=== PATIENT | male | born 1945 | race Caucasian/White ===

== ENCOUNTER 2023-08-20 23:59 | Inpatient (IN) | payer OTHER, SELFPAY ==
[2023-08-20] VITALS (8 sets, daily range): BP systolic 96–133; BP diastolic 58–81; BMI 28.7
[2023-08-20 19:39] LABS: % Basophils 0.6 % (0-2); % Eosinophils 5.2 % (0-6); % Immature Granulocytes 0.4 % (0-0.5); % Lymphocytes 16.1 % (20.5-51.1); % Monocytes 6.1 % (1.7-9.3); % Neutrophils 71.6 % (42.2-75.2); Absolute Basophils 0.1 10^3/uL (0-0.2); Absolute Eosinophils 0.5 10^3/uL (0-0.7); Absolute Lymphocytes 1.7 10^3/uL (1.2-3.4); Absolute Monocytes 0.6 10^3/uL (0.1-0.6); Absolute Neutrophils 7.4 10^3/uL (1.4-6.5); Hematocrit 32.8 % (39.0-52.0); Hemoglobin 10.9 g/dL (13.0-18.0); Mean Corp Hgb Conc. 33.2 g/dL (33.0-37.0); Mean Corpuscular Hgb 30.8 pg (27.0-31.0); Mean Corpuscular Volume 92.7 fL (80.0-94.0); Mean Platelet Volume 9.2 fL (7.4-10.4); Nucleated Red Blood Cells % 0 % (-); Platelet Count 276 10^3/uL (130-400); Red Blood Cell Count 3.54 10^6/uL (4.70-6.10); Red Cell Dist. Width 15.5 % (11.5-14.5); White Blood Cell Count 10.3 10^3/uL (4.8-10.8)
[2023-08-20 20:03] LABS: ALT (SGPT) 14 U/L (0-50); AST (SGOT) 21 U/L (17-59); Albumin 3.8 g/dl (3.5-5.0); Alkaline Phosphatase 64 U/L (38-126); Blood Urea Nitrogen 30 mg/dl (9-20); Calcium 8.8 mg/dl (8.4-10.2); Carbon Dioxide 28 mmol/L (22-30); Chloride 101 mmol/L (98-107); Glucose 134 mg/dl (70-99); Potassium 4.6 mmol/L (3.5-5.1); Sodium 138 mmol/L (135-145); Total Bilirubin 0.3 mg/dl (0.2-1.3); Total Protein 6.8 g/dl (6.3-8.2); eGFR > 60.00
[2023-08-20 20:13] LABS: Troponin I 0.123 ng/ml
[2023-08-20] MEDS: NSS 1000 IV (21:35)
--- NOTE | 2023-08-20 23:00 | ED.GENMED ---
History of Present Illness
General
Chief Complaint: Heart Rate Problem
Source: patient and spouse
Exam Limitations: none
Time Seen by Provider: 08/20/23 21:17
Nursing documentation reviewed up to this point in time: agreed with
Travel History
Have you had any contact with someone who has COVID-19?: No
Do you have any symptoms of coronavirus? Fever > 100 degrees, chills, cough, shortness of breath, sore throat, loss of taste or smell, muscle aches, or headache?: No
History of Present Illness
History of Present Illness:
77-year-old male with past ministry of hypertension diabetes presenting to the emergency department today with concerns of tachycardia that was found by the primary care doctor and close follow-up. Patient claims that he is syncopal episode at "[facility] yesterday morning was seen at [place] of having a CT angiogram of the that did not show any emergent findings as well as labs that were generally reassuring but a very minimally elevated troponin level. It was recommended to stay in the ""hospital but he was boarded in the ER. Concerning this he claimed that he would like to follow close with the primary care doctor which he went to follow-up with today that sent him back to the ER for further assessment.
Past History
Past History
ED Past Medical History: HTN, Hypercholesterolemia, IDDM and Other (Gout)
ED Past Surgical History: Other ([place] teeth)
Social History
Tobacco: Former smoker (Over 20 years ago)
Alcohol: None
Personal:
Living: with roommate
Employment: Retired
Family History
Family History: Other (Noncontributory)
Review of Systems
Review of Systems
Allergies reviewed?: Yes
All Other Systems: ROS reviewed and negative except as documented in HPI and ROS
Phy Exam
Physical Exam
Physical Exam:
GENERAL: Alert , in no apparent distress
EYE: pupils equal and reactive
NECK: Supple, no significant adenopathy.
ENT: o/p clr, mmm.
CARDIAC: Tachycardic
LUNGS: Clear breath sounds bilaterally, no acute respiratory distress, no wheezes/rales/rhonchi
ABDOMEN: Soft, without focal tenderness, no r/g, no cvat
NEUROLOGICAL: Alert and oriented, no focal neuro deficits
SKIN: Warm and dry, skin intact.
MUSCULOSKELETAL: No edema, well perfused.
PSYCH: Normal and appropriate interaction.
Course
Orders/Labs/Results
Orders:
Orders
08/20/23 19:25
Electrocardiogram (*1) Urgent
Reason for Study: Palpitations
08/20/23 19:26
EKG- Treatment ONCE
08/20/23 19:33
Complete Blood Count/With Diff Urgent
Comprehensive Metabolic Panel Urgent
Free T4 Urgent
TSH Reflex To Free T4 Urgent
Comment: ADD ON
Troponin I Urgent
08/20/23 21:34
0.9% Sodium Chloride 1000 ml [Nss] 1,000 ml IV BOLUS
08/20/23 22:05
Add On- LAB Urgent
Tests Added?: tsh free t4
Urinalysis Reflex To Culture Urgent
Date Specimen was Collected: 08/21/23
Time Specimen was Collected: 00:51
08/20/23 22:32
Metoprolol [Lopressor] 5 mg IV NOW STA
08/20/23 23:21
Diltiazem HCl [Cardizem] 20 mg IV NOW STA
08/20/23 23:49
EKG [Electrocardiogram (*1)] Urgent
Reason for Study: Tachycardia
EKG- Treatment ONCE
08/20/23 23:55
Troponin I Urgent
Abnormal Lab Results
08/20/23 08/20/23
19:33 23:55
RBC 3.54 L 10^6/uL
(4.70-6.10)
Hgb 10.9 L g/dL
(13.0-18.0)
Hct 32.8 L %
(39.0-52.0)
RDW 15.5 H %
(11.5-14.5)
Absolute Neuts (auto) 7.4 H 10^3/uL
(1.4-6.5)
Lymphocytes % 16.1 L %
(20.5-51.1)
BUN 30 H mg/dl
(9-20)
Glucose 134 H mg/dl
(70-99)
Troponin I 0.123 H* ng/ml 0.107 H* ng/ml
TSH (Reflex) 8.00 H uIU/ml
(0.47-4.68)
08/20/23 19:33
08/20/23 19:33
Vital Signs
Initial and Last Documented VS:
Initial Vital Signs
Temp Pulse Resp BP Pulse Ox
97.5 F 131 19 124/77 100
08/20/23 19:25 08/20/23 19:25 08/20/23 19:25 08/20/23 19:25 08/20/23 19:25
Last Documented Vital Signs
Temp Pulse Resp BP Pulse Ox
98.0 F 130 17 109/72 97
08/22/23 07:57 08/22/23 07:57 08/22/23 07:57 08/22/23 07:57 08/22/23 07:57
MDM/Problems Addressed
MDM/Problems Addressed:
77-year-old male presenting to the emergency department today with concerns of tachycardia seen by his primary care doctor. He was following up closely after had a syncopal episode the day prior was supposed to be admitted to [facility] but
ended up leaving for close follow-up. On arrival here heart rate in the 120s patient denies significant symptoms at this time otherwise labs were obtained showing hemoglobin 10.9 which is patient's baseline elevated BUN potentially consistent with
some degree of dehydration was given fluids troponin elevated 0.123 no old levels. EKG showing a tachycardic rate. Patient additionally given dose of Lopressor to try to slow the rate to repeat EKG to see underlying rhythm. 5 Lopressor was
unsuccessful with this. Patient did maintain his blood pressure. Patient then had dose of diltiazem. Patient's rate slowed and it appeared the patient was in atrial flutter this does explains patient's ongoing tachycardia patient started on
anticoagulant and admitted for further monitoring and evaluation.
*Critical Care Note
Total Time (30-74mins, 75-104mins- exclusive of procedures): Not Applicable
ED Attending Note
-
Portions of this chart may have been created with voice recognition software.� Occasional wrong word or��sound alike� substitutions may have occurred due to the inherent limitations of voice recognition software.
Discharge Plan
Departure
Patient Disposition: Admit
Date of Disposition: 08/20/23
Time of Disposition: 23:40
Admit to: Telemetry
Admit to doctor: Anastacio
Presentation/result/management discussed w/ accepting MD/DO: Hospitalist
Patient with high blood pressure during this ER visit?: No
Condition: Good
Covid-19: Not Applicable
Discharge Problem:
Tachycardia, Elevated troponin
Interventions
Interventions:
*Risk Screen - Suicide Last Done: 08/20/23 23:12
*General Assessment Last Done: 08/20/23 23:10
*Neglect/Abuse Screening Last Done: 08/20/23 23:10
ED- Fall Risk Assessment Last Done: 08/21/23 09:37
*ED COVID-19 Vaccine History Last Done: 08/20/23 19:27
*Nursing Disposition Last Done: 08/21/23 17:15
ED- Cardiac Assessment Last Done: 08/21/23 09:37
ED- Pulmonary Assessment Last Done: 08/21/23 09:37
Discharge Date and Time
Discharge Date/Time: 08/21/23 17:21
[2023-08-20] MEDS: LOPRESSOR 5 MG IV (23:08)
[2023-08-20] MEDS: CARDIZEM 20 MG IV (23:44)
[2023-08-21] VITALS (18 sets, daily range): BP systolic 94–138; BP diastolic 54–85; PULSE 126–127; BMI 28.2
[2023-08-21 00:03] LABS: Free T4 1.11 ng/dl (0.78-2.19)
--- NOTE | 2023-08-21 00:04 | HPS.HSE ---
Family Physician
-
Family Physician: Riley Patrick
Chief Complaint
-
syncope
History of Present Illness
77-year-old male past medical history of hypertension, diabetes, hypercholesterolemia, gout, presenting with tachycardia discovered by primary care physician. Patient states that he had a syncopal episode at [employer] yesterday morning. 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 He came back to
normal status afterwards. He did complain of some fullness in his head and some haziness afterwards. Patient denies any chest pain or palpitations or shortness of breath. He did have some nausea today and fatigue today.
He has been having chronic lower extremity over the past several months.
He was seen at [place] and had a CTA chest which did not show any abnormal findings. Patient had very minimal elevated troponin level. He was recommend to follow-up with primary care physician who noted that he was tachycardic and sent him to
emergency room.
He states that his glucometer was not working for the past 2 months he has not been checking his blood sugars. They were normal as of 2 months ago.
Patient does not smoke or drink alcohol.
Medical History
Past Medical History
Past Medical History: Reports Other (hypertension, diabetes, hypercholesterolemia, gout,)
Past Surgical History: Reports None
Social History
Tobacco: Non-smoker
Alcohol: None
Drug: None
Family History
Family History: Not pertinent
Allergies / Home Medications
Allergies reflects when Allergies were last updated in [employer].
Home Medications with original date entered in [employer]
Allergy/Medication List:
Allergies
Allergy/AdvReac Type Severity Reaction Status Date / Time
pamabrom Allergy Unknown Verified 04/18/23 17:06
Penicillins Allergy Unknown Verified 04/18/23 17:06
Home Medications
acarbose 25 mg tablet 25 mg PO BID 05/29/21
cyanocobalamin (vitamin B-12) 1,000 mcg tablet 1,000 mg PO DAILY 05/29/21
glimepiride 2 mg tablet 2 mg PO DAILY 05/29/21
lisinopril 20 mg tablet 20 mg PO BID 05/29/21
metformin 500 mg tablet,extended release 24 hr 500 mg PO QPM 05/29/21
metoprolol tartrate 50 mg tablet 50 mg PO BID 05/29/21
simvastatin 20 mg tablet 20 mg PO HS 05/29/21
allopurinol 100 mg tablet 100 mg PO BID 04/18/23
aspirin 81 mg tablet,delayed release 81 mg PO DAILY 04/18/23
furosemide 40 mg tablet 40 mg PO DAILY 04/18/23
Review of Systems
-
History Source: Patient
A 12 point ROS was completed and negative except as noted: Yes
Constitutional: Reports No Symptoms
EENT: Reports No Symptoms
Respiratory: Reports No Symptoms
Cardiac: Reports See HPI
Abdomen/GI: Reports No Symptoms
: Reports No Symptoms
Musculoskeletal: Reports No Symptoms
Skin: Reports No Symptoms
Neurological: Reports No Symptoms
Endocrine: Reports No Symptoms
Hematologic/Lymphatic: Reports No Symptoms
Psych: Reports No Symptoms
Physical Exam
Vital Signs
Vital Signs
Temp Pulse Resp BP Pulse Ox
97.5 F 64 16 108/66 98
08/20/23 19:25 08/20/23 23:56 08/20/23 23:56 08/20/23 23:56 08/20/23 23:56
Physical Exam
General: Well Developed, Well Nourished and No Apparent Distress
HEENT: NormoCephalic, Moist mucous membranes and Atraumatic
Respiratory: Clear
Cardiac: S1/S2, Regular Rhythm and Tachycardia; No Murmur or Rub
GI: Soft, Non Tender, Non Distended and Normal Bowel Sounds; No Organomegaly
Rectal: Deferred by Provider
Musculoskeletal: No Clubbing, No Cyanosis and No Edema
Skin: No Rash
Neuro: Nonfocal/grossly intact
Laboratory Results
-
08/20/23 19:33
08/20/23:33
Laboratory Results
Total Bilirubin 0.3 mg/dl (0.2-1.3) 08/20/23:33
AST 21 U/L (17-59) 08/20/23:33
ALT 14 U/L (0-50) 08/20/23:33
Alkaline Phosphatase 64 U/L (38-126) 08/20/23:33
Troponin I 0.123 ng/ml H* 08/20/23:33
Data Reviewed
-
Lab Data: Labs Reviewed by me
Old Records: Reviewed
Impression/Plan
-
IMPRESSION:
PLAN:
# Syncopal episode secondary to atrial flutter
# New onset atrial flutter with RVR
# Troponin elevation likely due to tachycardia
-Initial EKG shows sinus tachycardia, right bundle branch block, left posterior fascicular block without prior EKG
-IV fluids given
-Patient given PO Cardizem with slowing of heart rate to 60 showing atrial flutter
-Troponin of 0.123, continue to trend
-TSH of 8, check free T4
-Continue aspirin
-Continue metoprolol
-Check echo
-Heparin drip
-Cardiology consulted
Recent lower extremity edema
-Hold Lasix
Essential hypertension
-Continue lisinopril
Type 2 diabetes
-Hold oral diabetic medications
-Insulin sliding scale
Hypercholesterolemia
-Continue statin
Gout
-Continue allopurinol
Chronic anemia
-Hemoglobin stable
Full code
DVT prophylaxis�heparin drip
Regular diet
[2023-08-21 00:29] LABS: Troponin I 0.107 ng/ml
[2023-08-21 00:48] LABS: Hemoglobin 9.9 g/dL (13.0-18.0); Mean Corpuscular Hgb 30.7 pg (27.0-31.0); Mean Corpuscular Volume 92.9 fL (80.0-94.0); Mean Platelet Volume 9.1 fL (7.4-10.4); Platelet Count 242 10^3/uL (130-400); Red Blood Cell Count 3.23 10^6/uL (4.70-6.10); Red Cell Dist. Width 15.5 % (11.5-14.5); White Blood Cell Count 9.2 10^3/uL (4.8-10.8)
[2023-08-21 01:03] LABS: APTT 30.4 Sec (23.4-35.0)
[2023-08-21] MEDS: HEPARIN 25000 UNITS/250 ML IV ×2 (01:10→23:03)
[2023-08-21] MEDS: CARDIZEM 5 MG IV (01:47)
[2023-08-21 01:52] LABS: Urine Albumin Negative (Neg - Trace); Urine Bilirubin Negative (Negative); Urine Character Clear (Clear); Urine Color Yellow; Urine Glucose Negative (Negative); Urine Ketone Negative (Negative); Urine Leukocyte Negative (Negative); Urine Nitrite Negative (Negative); Urine Occult Blood Negative (Negative); Urine Urobilinogen Negative (Neg - 1+); Urine pH 6.5 (5.0-9.0)
--- NOTE | 2023-08-21 05:42 | W.PN.UPDATE ---
Update Note
Progress Note Update
Patient is tachy/a flutter with hr in 120s to 130s, denied chest pain or SOB. was managed by one time order of Cardizem 5mg IV, couple hours later hr back to 130s. Will start Cardizem drip at low rate of 5mg/hr.
[2023-08-21] MEDS: CARDIZEM 125 IV (05:56)
[2023-08-21 06:25] LABS: % Basophils 0.6 % (0-2); % Eosinophils 6.4 % (0-6); % Immature Granulocytes 1.7 % (0-0.5); % Lymphocytes 15.3 % (20.5-51.1); % Monocytes 6.8 % (1.7-9.3); % Neutrophils 69.2 % (42.2-75.2); Absolute Basophils 0.1 10^3/uL (0-0.2); Absolute Eosinophils 0.5 10^3/uL (0-0.7); Absolute Immature Granulocytes 0.1 10^3/uL (0-0.05); Absolute Lymphocytes 1.2 10^3/uL (1.2-3.4); Absolute Monocytes 0.5 10^3/uL (0.1-0.6); Absolute Neutrophils 5.4 10^3/uL (1.4-6.5); Hematocrit 31.9 % (39.0-52.0); Hemoglobin 10.1 g/dL (13.0-18.0); Mean Corp Hgb Conc. 31.7 g/dL (33.0-37.0); Mean Corpuscular Hgb 30.5 pg (27.0-31.0); Mean Corpuscular Volume 96.4 fL (80.0-94.0); Mean Platelet Volume 9.6 fL (7.4-10.4); Nucleated Red Blood Cells % 0 % (-); Platelet Count 252 10^3/uL (130-400); Red Blood Cell Count 3.31 10^6/uL (4.70-6.10); Red Cell Dist. Width 15.4 % (11.5-14.5); White Blood Cell Count 7.8 10^3/uL (4.8-10.8)
[2023-08-21 06:38] LABS: ALT (SGPT) 13 U/L (0-50); AST (SGOT) 19 U/L (17-59); Albumin 3.2 g/dl (3.5-5.0); Alkaline Phosphatase 62 U/L (38-126); Blood Urea Nitrogen 24 mg/dl (9-20); Calcium 8.2 mg/dl (8.4-10.2); Carbon Dioxide 26 mmol/L (22-30); Chloride 109 mmol/L (98-107); Estimated Creatinine Clearance 73 ml/min; Glucose 132 mg/dl (70-99); Potassium 4.4 mmol/L (3.5-5.1); Sodium 137 mmol/L (135-145); Total Bilirubin 0.3 mg/dl (0.2-1.3); Total Protein 6.1 g/dl (6.3-8.2); eGFR > 60.00
[2023-08-21 06:53] LABS: Troponin I 0.072 ng/ml
[2023-08-21] MEDS: VITAMIN B-12 1000 MCG PO (08:44)
[2023-08-21] MEDS: ZYLOPRIM 100 MG PO ×2 (08:45→20:05)
[2023-08-21] MEDS: LOPRESSOR 50 MG PO ×2 (08:45→20:05)
[2023-08-21 08:57] LABS: APTT 37.6 Sec (23.4-35.0)
[2023-08-21 09:29] LABS: Glucose - Point of Care 144 mg/dl (70-99)
[2023-08-21 09:31] LABS: Glycohemoglobin (HgbA1c) 7.5 % (4.0-5.6)
[2023-08-21] MEDS: NOVOLOG FLEXPEN-LOW RESISTANCE SC ×2 (09:40→13:04)
[2023-08-21] MEDS: ZESTRIL PO ×2 (09:48→09:52)
--- NOTE | 2023-08-21 11:19 | CON.CAR ---
Addendum entered and electronically signed by Erich Roman MD 08/21/23 14:23:
Attending addendum: Patient seen and examined. PA note reviewed and findings independently confirmed by me. Briefly, this is a 77-year-old gentleman with a longstanding history of diabetes mellitus x 30 years. He is active in the [employer] and reported an episode of profound dizziness and transient loss of consciousness while at [employer] on Sunday. He slumped forward but his states he was found to be immediately alert when he hit the ground. He had been somewhat diaphoretic
before falling. He was seen by several attendees of the service and given a little snack and some orange juice. He was then transferred to [facility] and had a CT scan of the chest that was negative for pulmonary embolism. He was told to
follow-up with his primary care physician and was seen by Dr. Patrikc and had a heart rate of 130 bpm and referred to the emergency room for further evaluation. Upon arrival here he was found to be in atrial flutter/atrial fib. He was started on IV
Cardizem and IV heparin with improvement in the ventricular response. He has experienced no chest discomfort but his initial troponin measured 0.123 ng/ml. Patient states that he is not too active at home but moved 16 bags of mulch last week with
no difficulty. He denies any chest discomfort or shortness of breath. He is reasonably asymptomatic with his atrial flutter.
Physical exam
GEN: AAO x 3. No acute distress
HEENT: NC/AT, sclera are anicteric, hearing and nares are normal.
NECK: Supple. Normal JVP
LUNGS: Clear to bases bilaterally. No wheezing
CV: Irregularly irregular and tachycardic. Normal S1/S2. No S3, No S4. Murmur: None
ABD : Soft, NT, ND, No HSM. Bowel sounds are present.
EXT: No CCE
NEURO: No focal neurologic deficits
ECG: Atrial flutter with rapid ventricular response
IMPRESSION:
-Atrial flutter/atrial fib
-Longstanding diabetes
-Non-NE troponin elevation
-Hypertension
-Hyperlipidemia
RECOMMENDATION:
-Will check echocardiogram
-N.p.o. after midnight for planned JAROD cardioversion
-Will ask case management to review cost of oral anticoagulants
-Will need eventual ischemic evaluation with stress testing or coronary angiography based on low-level positive troponin. Results of echocardiogram may influence ischemic evaluation pathway
-I would intensify lipid-lowering given his longstanding diabetes. Check fasting lipid profile
Original Note:
Consultation
Consultation Request
Date/Time Consultation Requested: 08/21/23 at 0046
Date/Time Consultation Performed: 08/21/23 at 0930
Requesting Provider: Dr. Chavez
Performing Provider: Dr. Roman
Reason for Consultation: Elevated Troponin, newly diagnosed atrial flutter of unknown duration
Medical History
-
History of Present Illness:
Patient came to [facility] yesterday with new atrial flutter and cardiology is consulted. 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 He is also a DM and has not had a working glucometer for 2 months so after
the morning practice session, but before the [employer] service he was lightheaded and ate some crackers and cookies and felt better. 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
unconsciousness. Patient [place] and then 911 came. Patient was taken to [facility]. He has the [facility] records and his recorded HR is 101, but no ECG. He had a CT chest that was negative for PE. CT head negative. His
Troponin T at [facility] was 18. He says he was told he should follow up with his PCP and so he saw Dr. Patrick in the office yesterday and HR was 130 and ECG was concerning for 'tachycardia' so patient was told to drive himself to [facility]. Upon arrival to [facility]
patient was given Lopressor and then Cardizem and once HR slowed flutter waves were seen. Patient was admitted overnight and started on Cardizem gtt and Heparin gtt. No chest pain, but Troponin was elevated again with initial level 0.123 and trended
down thereafter. Patient was able to move 16 bags of mulch within the last week without chest pain.
PMH:
h/o syncope 08/19/23
DM 2
HTN
Hyperlipidemia
Past Medical History
Past Medical History: Other (in HPI)
Past Surgical History: Other ([place] teeth)
Social History
Tobacco: Former Smoker
Alcohol: None
Drug: None
Personal: Single
Living: Alone
Family History
Family History: Reviewed & Not Pertinent (no children)
Allergies / Home Medications
Allergy/AdvReac Type Severity Reaction Status Date / Time
pamabrom Allergy Unknown Verified 04/18/23 17:06
Penicillins Allergy Unknown Verified 04/18/23 17:06
�Medication �Instructions �Recorded �Confirmed �Type
acarbose 25 mg tablet 25 mg PO BID Diabetes 05/29/21 08/21/23 History
cyanocobalamin (vitamin B-12) 1,000 mg PO DAILY Supplement 05/29/21 08/21/23 History
1,000 mcg tablet
glimepiride 2 mg tablet 2 mg PO DAILY Diabetes 05/29/21 08/21/23 History
lisinopril 20 mg tablet 20 mg PO BID Blood Pressure 05/29/21 08/21/23 History
metformin 500 mg tablet,extended 500 mg PO QPM Diabetes 05/29/21 08/21/23 History
release 24 hr
metoprolol tartrate 50 mg tablet 50 mg PO BID 05/29/21 08/20/23 History
simvastatin 20 mg tablet 20 mg PO HS 05/29/21 08/20/23 History
allopurinol 100 mg tablet 100 mg PO BID Gout 04/18/23 08/21/23 History
aspirin 81 mg tablet,delayed 81 mg PO DAILY Blood Clot 04/18/23 08/21/23 History
release Prevention/Tx
furosemide 40 mg tablet 40 mg PO DAILY Fluid 04/18/23 08/21/23 History
Retention/Swelling
Review of Systems
-
History Source: Patient and Family (partner sitting bedside helping with HPI)
All other systems: Negative unless noted
Physical Exam
Vital Signs
Temp Pulse Resp BP Pulse Ox
97.5 F 88 23 107/54 98
08/20/23 19:25 08/21/23 10:30 08/21/23 10:30 08/21/23 10:00 08/21/23 08:00
GEN: NAD, AAOx3
HEENT: EOMI, MMM
LUNGS: CTA B/L without wheeze
CV: Irreg, S1/S2, no murmur
ABD: soft, BS+, NT, ND
EXT: No clubbing, cyanosis, lesions or edema B/L
NEURO: Gross non-focal
SKIN: No rash
Lab Results
08/21/23 05:56
08/21/23 05:56
Troponin I Cancelled 08/21/23 18:00
Impression / Plan
-
PCP: Dr. Riley Patrick
Cardiology: Dr. Spencer, last seen 06/30/20
Impression:
Newly diagnosed typical atrial flutter with RVR 08/20/23
h/o syncope 08/19/23
Elevated Troponin
DM 2
HTN
Hyperlipidemia
Lexiscan mibi 06/15/20: Small area fixed defect apex, EF 58%
Plan:
-Patient came to [facility] yesterday with new atrial flutter and cardiology is consulted. 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 He is also a DM and has not had a working glucometer for 2 months so after
the morning practice session, but before the [employer] service he was lightheaded and ate some crackers and cookies and felt better. 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
unconsciousness. Patient was cared for by EMS and a nurse in the [place] and then 911 came. Patient was taken to [facility] ER. He has the [facility] records and his recorded HR is 101, but no ECG. He had a CT chest that was negative for PE. CT head negative. His
Troponin T at [facility] was 18. He says he was told he should follow up with his PCP and so he saw Dr. Patrick in the office yesterday and HR was 130 and ECG was concerning for 'tachycardia' so patient was told to drive himself to [facility]. Upon arrival to [facility]
patient was given Lopressor and then Cardizem and once HR slowed flutter waves were seen. Patient was admitted overnight and started on Cardizem gtt and Heparin gtt. No chest pain, but Troponin was elevated again with initial level 0.123 and trended
down thereafter. Patient was able to move 16 bags of mulch within the last week without chest pain.
-Patient with new atrial flutter on ECG last night. No ECGs available from [facility]. No palpitations, but patient has felt fatigued and had syncope on Sunday. HRs 132 initially, but on Cardizem gtt at 5 mg/hr HRs 80-90s. Presented patient with options of
JAROD/CV vs rate control. Reviewed risks vs benefits of each including JAROD procedure in detail and risks of incipient CM and HF with uncontrolled atrial arrhythmia. Patient is leaning towards rate control.
-Reviewed risks of stroke and DOEC vs warfarin. Patient stable on Heparin gtt. Will ask CM to check cost of Eliquis. Would stop aspirin if starting on OAC.
-Troponin T at [facility] was 18 and Troponin I at was 0.123 and trended down thereafter. ECG reviewed by me shows atrial flutter. No complaints of chest pain. No recent chest pain or MONZON prior to admission. No ischemic by stress test in 2020. Will
recommend an outpatient stress test.
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 Recommend treatment of issues as outlined.
-Patient needs to start following blood sugars again.
--- NOTE | 2023-08-21 11:30 | W.PN.HOSP.TC ---
Addendum entered and electronically signed by Natali Chavez MD 08/21/23 11:49:
non-billable note (H&P signed same calendar date)
Original Note:
Today's Communication/Plan
-
see outlined plan
Assessment / Plan
Assessment / Plan
Assessment:
Syncopal episode secondary to atrial flutter
New onset atrial flutter with RVR
non-MN Troponin elevation likely due to tachycardia/Flutter
- trop peaked at .107
- TSH abnormal at 8; free T4 normal
- initially trialed on PO Cardizem, but went into further RVR
- started on IV Cardizem drip - requires intensive monitoring
- continue PO Metoprolol
- on IV Heparin - requires intensive monitoring. [id number] score is 4 (age, DM, HTN). [facility] out oral OAC options.
- TTE: pending read
- rate control vs JAROD/CV being decided by patient/family
- [facility] Cards consulted
Recent lower extremity edema
- Hold Lasix
Essential hypertension
- continue lisinopril
Type 2 diabetes
- Hold oral diabetic medications
- Insulin sliding scale
- A1c 7.5%
Hypercholesterolemia
- continue statin
Gout
- continue allopurinol
Chronic anemia
- Hemoglobin stable
- continue B12
DVT ppx: IV Heparin drip
Code: Full
Anticipated Discharge: > 48 hours
Subjective/Interval History
-
Date of Service: August 21, 2023
denies any new complaints at present
remains on IV Heparin and IV Cardizem drips
Objective Data
-
Labs:
Laboratory Results
08/21/23 08/21/23 08/21/23
00:40 05:56 08:25
WBC 9.2 7.8
Hgb 9.9 L 10.1 L
Hct 30.0 L 31.9 L
Plt Count 242 252
APTT 30.4 37.6 H
Sodium 137
Potassium 4.4
Chloride 109 H
Carbon Dioxide 26
BUN 24 H
Creatinine 1.0
Glucose 132 H
Calcium 8.2 L
Total Bilirubin 0.3
AST 19
ALT 13
Alkaline Phosphatase 62
Vital Signs:
Vital Signs
Temp Pulse Resp BP Pulse Ox
97.5 F 88 23 107/54 98
08/20/23 19:25 08/21/23 10:30 08/21/23 10:30 08/21/23 10:00 08/21/23 08:00
Physical Exam
-
General: No Apparent Distress
HEENT: Normocephalic and Atraumatic
Cardiac: Irregular Rhythm
GI: Soft and Nontender
Neuro: AO x 3
Hematologic / Lymphatic: No Lymphadenopathy
Psych: Calm
Data Reviewed
-
Total Time Spent with Patient (in minutes): 51
Labs: Labs Reviewed by me
--- NOTE | 2023-08-21 12:22 | CM ---
CM was consulted for yeager check on Beddit. CM spoke with patient's [facility] and confirmed $47 copay. Patient was updated and given filler wiper coupons. Patient is agreeable to cost.
CM confirmed demographics. Patient lives independently with . Patient does not have a history of VN, SNF or DME. Patient is active with his PCP. Plan for discharge to home with no needs.
RD updated cardiology PA.
PLAN: Home no needs,
[2023-08-21 13:04] LABS: Glucose - Point of Care 149 mg/dl (70-99)
[2023-08-21 13:58] LABS: APTT 39.2 Sec (23.4-35.0)
[2023-08-21 17:24] LABS: Glucose - Point of Care 201 mg/dl (70-99)
[2023-08-21 19:24] LABS: Glucose - Point of Care 155 mg/dl (70-99)
[2023-08-21] MEDS: NOVOLOG FLEXPEN-LOW RESISTANCE 1 UNITS SC (19:28)
[2023-08-21] MEDS: ZESTRIL 20 MG PO (20:04)
[2023-08-21 20:44] LABS: APTT 43.9 Sec (23.4-35.0)
[2023-08-21] MEDS: LIPITOR 40 MG PO (21:18)
[2023-08-21 22:15] LABS: Glucose - Point of Care 214 mg/dl (70-99)
[2023-08-22] VITALS (13 sets, daily range): BP systolic 105–121; BP diastolic 54–75; BMI 28.2
[2023-08-22] MEDS: CARDIZEM 125 IV (03:15)
[2023-08-22 04:38] LABS: APTT 56.8 Sec (23.4-35.0)
[2023-08-22 04:40] LABS: Hematocrit 29.6 % (39.0-52.0); Hemoglobin 9.7 g/dL (13.0-18.0); Mean Corp Hgb Conc. 32.8 g/dL (33.0-37.0); Mean Corpuscular Hgb 31.2 pg (27.0-31.0); Mean Corpuscular Volume 95.2 fL (80.0-94.0); Mean Platelet Volume 9.6 fL (7.4-10.4); Platelet Count 278 10^3/uL (130-400); Red Blood Cell Count 3.11 10^6/uL (4.70-6.10); Red Cell Dist. Width 15.6 % (11.5-14.5); White Blood Cell Count 8.6 10^3/uL (4.8-10.8)
--- NOTE | 2023-08-22 04:53 | DOWNTIME ---
There was a [employer] Downtime on 08/22/2023 from 0100 to 08/22/2023 at 0439. Downtime documentation of patient's care, including medication administrations, has been reconciled in the electronic record per guidelines. Refer to the
patient's paper chart under the miscellaneous tab to see printed paper medication records and downtime forms.
--- NOTE | 2023-08-22 05:12 | PTCARENOTE ---
A 2355, pts HR 67 and showing NSR on monitor. DAVID Quinonez notified. EKG showing ATRIAL FLUTTER WITH 4:1 A-V CONDUCTION
RIGHT BUNDLE BRANCH BLOCK. Cardizem gtt continuing at 5mg/hr.
at 0400, pt's HR in 100s to 120s, Afib on monitor. BP 121/75. Pt asymptomatic. DAVID Quinonez notified. This nurse took a verbal order over the phone from DAVID Quinonez to increase pt's IV Cardizem to 10mg/hr. Plan of care ongoing.
[2023-08-22 05:15] LABS: Blood Urea Nitrogen 20 mg/dl (9-20); Calcium 8.3 mg/dl (8.4-10.2); Carbon Dioxide 26 mmol/L (22-30); Chloride 110 mmol/L (98-107); Estimated Creatinine Clearance 66 ml/min; Glucose 145 mg/dl (70-99); Potassium 4.3 mmol/L (3.5-5.1); Sodium 136 mmol/L (135-145); Total Cholesterol 95 mg/dl (50-199); Triglyceride 145 mg/dl (10-149); Very Low Density Lipoprotein 29 mg/dl (0-30); eGFR > 60.00
[2023-08-22 05:16] LABS: HDL Cholesterol 30 mg/dl; LDL Cholesterol, Calculated 36 mg/dl
[2023-08-22 05:44] LABS: Glucose - Point of Care 164 mg/dl (70-99)
[2023-08-22] MEDS: NOVOLOG FLEXPEN-LOW RESISTANCE 1 UNITS SC ×3 (06:13→17:13)
[2023-08-22] MEDS: VITAMIN B-12 1000 MCG PO (08:03)
[2023-08-22] MEDS: ZESTRIL 20 MG PO ×2 (08:03→20:51)
[2023-08-22] MEDS: LOPRESSOR 50 MG PO (08:04)
[2023-08-22] MEDS: ZYLOPRIM 100 MG PO ×2 (08:04→20:48)
[2023-08-22 10:43] LABS: APTT 79.4 Sec (23.4-35.0)
--- NOTE | 2023-08-22 10:43 | W.PN.CARDCBS ---
Today's Communication / Plan
-
Remains in atrial flutter
JAROD/cv today
Transition from IV Heparin to Eliquis
Outpt follow up to consider outpt ischemic eval.
Outpt follow up with Dr Spencer.
Reviewed with family at bedside.
Impression / Plan
-
.
PCP: Dr. Riley Patrick
Cardiology: Dr. Spencer, last seen 06/30/20
Impression:
Newly diagnosed typical atrial flutter with RVR 08/20/23
h/o syncope 08/19/23
Elevated Troponin
DM 2
HTN
Hyperlipidemia
Lexiscan mibi 06/15/20: Small area fixed defect apex, EF 58%
Echo August 21 2023: EF 70-75%. Mild concentric LVH. Mild mitral regurgitation
No prior studies for comparison
Plan:
Remains in atrial flutter
JAROD/cv today
Transition from IV Heparin to Eliquis
Outpt follow up to consider outpt ischemic eval.
Outpt follow up with Dr Spencer.
Reviewed with family at bedside.
HPI: Patient came to [facility] yesterday with new atrial flutter and cardiology is consulted. 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 He is also a DM and has not had a working glucometer for 2 months so
after the morning practice session, but before the [employer] service he was lightheaded and ate some crackers and cookies and felt better. 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
with unconsciousness. Patient [place] cared [place] EMS [place] and then 911 came. Patient was taken to [facility] ER. He has the [facility] records and his recorded HR is 101, but no ECG. He had a CT chest that was negative for PE. CT head negative.
His Troponin T at [facility] was 18. He says he was told he should follow up with his PCP and so he saw Dr. Patrick in the office yesterday and HR was 130 and ECG was concerning for 'tachycardia' so patient was told to drive himself to [facility]. Upon arrival to
[facility] patient was given Lopressor and then Cardizem and once HR slowed flutter waves were seen. Patient was admitted overnight and started on Cardizem gtt and Heparin gtt. No chest pain, but Troponin was elevated again with initial level 0.123 and
trended down thereafter. Patient was able to move 16 bags of mulch within the last week without chest pain.
Attending addendum: Patient seen and examined. PA note reviewed and findings independently confirmed by me. Briefly, this is a 77-year-old gentleman with a longstanding history of diabetes mellitus x 30 years. He is active in the [employer]
cho[employer] and reported an episode of profound dizziness and transient loss of consciousness while at [employer] on Sunday. He slumped forward but his states he was found to be immediately alert when he hit the ground. He had been somewhat diaphoretic
before falling. He was seen by several attendees of the service and given a little snack and some orange juice. He was then transferred to [facility] and had a CT scan of the chest that was negative for pulmonary embolism. He was told to
follow-up with his primary care physician and was seen by Dr. Patrick and had a heart rate of 130 bpm and referred to the emergency room for further evaluation. Upon arrival here he was found to be in atrial flutter/atrial fib. He was started on IV
Cardizem and IV heparin with improvement in the ventricular response. He has experienced no chest discomfort but his initial troponin measured 0.123 ng/ml. Patient states that he is not too active at home but moved 16 bags of mulch last week with
no difficulty. He denies any chest discomfort or shortness of breath. He is reasonably asymptomatic with his atrial flutter.
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
Subjective
Date of Service: August 22, 2023
Pt seen and examined. No cp or dyspnea
Objective
Labs:
08/22/23 03:00
08/22/23 03:00
Labs
Hgb 9.7 g/dL (13.0-18.0) L 08/22/23 03:00
Hct 29.6 % (39.0-52.0) L 08/22/23 03:00
Plt Count 278 10^3/uL (130-400) 08/22/23 03:00
APTT 56.8 Sec (23.4-35.0) H 08/22/23 03:00
Sodium 136 mmol/L (135-145) 08/22/23 03:00
Potassium 4.3 mmol/L (3.5-5.1) 08/22/23 03:00
BUN 20 mg/dl (9-20) 08/22/23 03:00
Creatinine 1.1 mg/dL (0.7-1.3) 08/22/23 03:00
Glucose 145 mg/dl (70-99) H 08/22/23 03:00
Troponins
08/20/23 08/20/23 08/21/23
19:33 23:55 00:46
Troponin I 0.123 H* 0.107 H* Cancelled
08/21/23 08/21/23 08/21/23
05:56 06:46 12:00
Troponin I 0.072 H* D Cancelled Cancelled
08/21/23 08/21/23
12:46 18:00
Troponin I Cancelled Cancelled
Vital Signs and I&O:
Vital Signs
Temp Pulse Resp BP Pulse Ox
98.0 F 130 17 109/72 97
08/22/23 07:57 08/22/23 07:57 08/22/23 07:57 08/22/23 07:57 08/22/23 08:00
Vital Signs
Temp Pulse Resp BP Pulse Ox
98.0 F 130 17 109/72 97
08/22/23 07:57 08/22/23 07:57 08/22/23 07:57 08/22/23 07:57 08/22/23 08:00
Intake & Output
08/20/23 08/21/23 08/22/23 08/23/23
06:59 06:59 06:59 06:59
Intake Total 120 / 120
Balance 120 / 120
Physical Exam
Physical Exam
General: No acute distress, AAOX3
Neck: Negative JVD
Heart: Tachycardia, Negative S3 positive S1/S2, Negative S4, No murmur
Lungs: CTA b/l, negative wheezes/rales/rhonchi
Abd: Positive BS, NT/ND, neg rebound/rigidity/guarding
Ext: Negative cyanosis/clubbing/edema
Neuro: nonfocal
--- NOTE | 2023-08-22 11:24 | W.PN.HOSP.TC ---
Today's Communication/Plan
-
await JAROD/CV and cards recs
Assessment / Plan
Assessment / Plan
Assessment:
Syncopal episode secondary to atrial flutter
New onset atrial flutter with RVR
non-[place] Troponin elevation likely due to tachycardia/Flutter
- trop peaked at .107 - eventual ischemic evaluation stress vs cath per Cardiology
- TSH abnormal at 8; free T4 normal
- initially trialed on PO Cardizem, but went into further RVR
- started on IV Cardizem drip - requires intensive monitoring
- continue PO Metoprolol
- transition to Eliquis 5mg BID, cost is $47 per CM.
- TTE: normal LV size/function, normal EF. mild MR, trace TR otherwise normal
- for JAROD/CV today
- DCA Cards following
Recent lower extremity edema
- Hold Lasix
Essential hypertension
- continue lisinopril
Type 2 diabetes
- Hold oral diabetic medications
- Insulin sliding scale
- A1c 7.5%
Hypercholesterolemia
- continue high intensity statin
- LDL: 36
Gout
- continue allopurinol
Chronic anemia
- Hemoglobin stable
- continue B12
DVT ppx: Eliquis
Code: Full
Anticipated Discharge: Within 24 hours
Subjective/Interval History
-
Date of Service: August 22, 2023
remains in rapid Aflutter on cardizem drip
for JAROD/CV today
denies any new complaints
Objective Data
-
Labs:
Laboratory Results
08/22/23 08/22/23 08/22/23
03:00 10:25 17:00
WBC 8.6
Hgb 9.7 L
Hct 29.6 L
Plt Count 278
APTT 56.8 H 79.4 H Pending
Sodium 136
Potassium 4.3
Chloride 110 H
Carbon Dioxide 26
BUN 20
Creatinine 1.1
Glucose 145 H
Calcium 8.3 L
Vital Signs:
Vital Signs
Temp Pulse Resp BP Pulse Ox
98.0 F 126 18 105/72 98
08/22/23 11:20 08/22/23 11:20 08/22/23 11:20 08/22/23 11:20 08/22/23 11:20
I&O
08/21/23 08/22/23 08/23/23
06:59 06:59 06:59
Intake Total 120 / 120
Balance 120 / 120
Physical Exam
-
General: No Apparent Distress
HEENT: Normocephalic and Atraumatic
Respiratory: Clear to Auscultation; Negative Wheezes or Rales
Cardiac: Irregular Rhythm and Tachycardic
GI: Soft and Nontender
Genito-urinary: No Costovertebral Tender
Neuro: AO x 3
Hematologic / Lymphatic: No Lymphadenopathy
Psych: Calm
Data Reviewed
-
Total Time Spent with Patient (in minutes): 45
Labs: Labs Reviewed by me
[2023-08-22] MEDS: ELIQUIS 5 MG PO ×2 (11:27→20:48)
[2023-08-22 11:47] LABS: Glucose - Point of Care 179 mg/dl (70-99)
--- NOTE | 2023-08-22 14:02 | ITS.CL.CARDI ---
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
Cardioversion
Procedure Report:
Date of Procedure: 2023
Procedure: Cardioversion
Indication: Symptomatic atrial flutter
Performing Physician: Colten José DO, FACC
Technique: The patient was brought to the holding area. Signed informed consent was obtained. A time out was called and performed. The patient was anesthetized by the anesthesia service. Anticoagulation status was reviewed and appropriate. R2 pads
were placed anteriorly and posteriorly. A 250 J synchronized biphasic shock restored normal sinus rhythm without significant bradycardia. There were no complications.
Conclusion: Uncomplicated cardioversion from atrial flutter to sinus rhythm.
Recommendation: Routine post cardioversion care. Continue chcf anticoagulation.
--- NOTE | 2023-08-22 14:55 | W.PN.UPDATE ---
Update Note
Progress Note Update
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 Patient with sinus bradycardia. He was on Cardizem gtt and received his usual doses of Lopressor 50 mg BID. Cardizem gtt stopped. Lopressor stopped. Atropine given. Briefly started on dopamine and
HR improved. Will wean dopamine and transfer to IVU for monitoring overnight.
[2023-08-22 15:29] LABS: Glucose - Point of Care 153 mg/dl (70-99)
--- NOTE | 2023-08-22 16:01 | PTCARENOTE ---
Assumed care of pt s/p JAROD cardioversion. Plan was to discharge after procedure but he became hypotensive and bradycardic - given atropine/dopamine/NSS. Transferred to IVU 2253. On arrival pt alert and joking w/ staff. Pt has no complaints.
Rhythm sinus in 60s. BP - 115/64.
[2023-08-22 17:02] LABS: Glucose - Point of Care 164 mg/dl (70-99)
--- NOTE | 2023-08-22 18:28 | PTCARENOTE ---
Pt having recurrent pauses lasting around 2.4 sec. Episode of bradycardia lasting about 10 minutes w/ rate briefly in high 30s. Pt asymptomatic. Rate returned to sinus in 60s. Straddle [employer] notified and recommends keeping on bedrest and
monitoring for pauses longer than 3 seconds.
[2023-08-22] MEDS: LIPITOR 40 MG PO (20:53)
[2023-08-22 21:14] LABS: Glucose - Point of Care 224 mg/dl (70-99)
--- NOTE | 2023-08-22 22:57 | PTCARENOTE ---
Aprox 2205 pt had 5.3 seconds pause. (see strip) Dr Muñoz notified at that time. Pt having frequent pauses ranging 2-3 seconds since arrival to floor. Pt asymptomatic. Pt with no c/o at this time. in room with him.
[2023-08-23] VITALS (8 sets, daily range): BP systolic 98–154; BP diastolic 53–85; PULSE 77
[2023-08-23 04:59] LABS: Hematocrit 29.4 % (39.0-52.0); Hemoglobin 9.3 g/dL (13.0-18.0); Mean Corp Hgb Conc. 31.6 g/dL (33.0-37.0); Mean Corpuscular Hgb 30.7 pg (27.0-31.0); Mean Platelet Volume 9.6 fL (7.4-10.4); Platelet Count 252 10^3/uL (130-400); Red Blood Cell Count 3.03 10^6/uL (4.70-6.10); Red Cell Dist. Width 15.6 % (11.5-14.5); White Blood Cell Count 9.4 10^3/uL (4.8-10.8)
[2023-08-23 05:18] LABS: Blood Urea Nitrogen 25 mg/dl (9-20); Calcium 8.1 mg/dl (8.4-10.2); Carbon Dioxide 24 mmol/L (22-30); Chloride 108 mmol/L (98-107); Estimated Creatinine Clearance 46 ml/min; Glucose 147 mg/dl (70-99); Potassium 4.7 mmol/L (3.5-5.1); Sodium 137 mmol/L (135-145); eGFR 44.38
[2023-08-23 08:07] LABS: Glucose - Point of Care 163 mg/dl (70-99)
[2023-08-23] MEDS: ZYLOPRIM 100 MG PO ×2 (08:10→19:36)
[2023-08-23] MEDS: ZESTRIL 20 MG PO ×2 (08:10→19:36)
[2023-08-23] MEDS: VITAMIN B-12 1000 MCG PO (08:10)
[2023-08-23] MEDS: NOVOLOG FLEXPEN-LOW RESISTANCE 1 UNITS SC ×3 (08:11→17:16)
[2023-08-23] MEDS: ELIQUIS 5 MG PO (08:11)
--- NOTE | 2023-08-23 08:17 | W.PN.HOSP.TC ---
Today's Communication/Plan
-
Hold AV jimmy agents. Cardiac monitoring. Cardiology reeval today
Assessment / Plan
Assessment / Plan
Physical exam:
General: Well Developed, Well Nourished and No Apparent Distress
HEENT: Normocephalic, Atraumatic and Moist Mucous Membranes
Respiratory: Clear to Auscultation; Negative Wheezes, Rales or Rhonchi
Cardiac: Regular Rhythm and S1/S2
GI: Soft, Nontender and Nondistended
Musculoskeletal: No Clubbing, No Cyanosis and No Edema
Neuro: Awake, Alert and Oriented
Psych: Calm
Assessment:
Syncopal episode secondary to atrial flutter
New onset atrial flutter with RVR
Sinus bradycardia after cardioversion 08/21. Concerns for sick sinus syndrome
non-[place] Troponin elevation likely due to tachycardia/Flutter
-Yesterday he was transferred to IVU and he was given atropine and briefly started on dopamine drip and heart rate improved
-No rate control agents today (last dose beta-jack yesterday morning and Cardizem drip discontinued yesterday as well)
-Hold Eliquis for now in case he needs procedure such as pacemaker
-Continue cardiac monitoring
-Discussed with at bedside today on 08/22
-Follow-up further cardiology recommendations
Prior to today:
- trop peaked at .107 - eventual ischemic evaluation stress vs cath per Cardiology
- TSH abnormal at 8; free T4 normal
- initially trialed on PO Cardizem, but went into further RVR
- started on IV Cardizem drip - requires intensive monitoring
- continue PO Metoprolol
- transition to Eliquis 5mg BID, cost is $47 per CM.
- TTE: normal LV size/function, normal EF. mild MR, trace TR otherwise normal
- for JAROD/CV today
- DCA Cards following
Recent lower extremity edema
- Hold Lasix
Essential hypertension
- continue lisinopril
Type 2 diabetes
- Hold oral diabetic medications
- Insulin sliding scale
- A1c 7.5%
Hypercholesterolemia
- continue high intensity statin
- LDL: 36
Gout
- continue allopurinol
Chronic anemia
- Hemoglobin stable
- continue B12
DVT ppx: Eliquis
Code: Full
Anticipated Discharge: 24 - 48 hours
Subjective/Interval History
-
Date of Service: August 23, 2023
Denies chest pain or shortness of breath today. No lightheadedness
Objective Data
-
Labs:
Laboratory Results
08/23/23
04:32
WBC 9.4
Hgb 9.3 L
Hct 29.4 L
Plt Count 252
Sodium 137
Potassium 4.7
Chloride 108 H
Carbon Dioxide 24
BUN 25 H
Creatinine 1.6 H
Glucose 147 H
Calcium 8.1 L
Vital Signs:
Vital Signs
Temp Pulse Resp BP Pulse Ox
98.1 F 65 18 115/64 97
08/23/23 04:23 08/23/23 04:21 08/23/23 04:23 08/23/23 04:21 08/23/23 04:23
I&O
08/22/23 08/23/23 08/24/23
06:59 06:59 06:59
Intake Total 120 / 120 240 / 240
Balance 120 / 120 240 / 240
--- NOTE | 2023-08-23 09:29 | CM ---
Reviewed chart. Mr. Groves was transferred to IVU. Met with and Mrs. Groves to review discharge plans. He states prior to admission he resides with his spouse in a two story home with one step to enter. He states he has a first floor set-up
except he goes up a full flight of steps to get his man cave. He states prior to admission he was independent with ambulation and adls. He states he does not have any DME in the home. He states he has a prescription plan and uses [facility].
Medical work-up in progress. The discharge plan is to return home with his spouse when medically stable.
--- NOTE | 2023-08-23 10:40 | W.PN.CARDCBS ---
Addendum entered and electronically signed by Colten José DO 08/23/23 15:30:
I saw and examined the patient.
The Prevention Coordinator's note was reviewed and I agree with the note.
Comment:
Plan:
Long discussion with pt and his at bedside.
He had significant heart block after his cardioversion including need for brief Dopamine and ephedrine.
Given the fact that he had additional pauses, following his significant heart block with junctional beating after his cardioversion, with one pause up to 5.3 seconds as well as his previous syncope, that consideration for permanent pacemaker is
warranted. Reviewed the procedures and risks. He was agreeable to proceed
Reviewed with EP, that given he received Eliquis this AM would schedule for August 23.
Given his non-[place] troponin and cardiac risk factors we did discuss outpatient ischemic evaluation with stress testing after follow-up.
He remains in sinus rhythm. He was appreciative of the explanation. He has considerable anxiety over his medical conditions.
Discussed with nursing.
Original Note:
Today's Communication / Plan
-
Possible PPM being considered
Remains in SR
Last dose of Lopressor was yesterday morning and Cardizem gtt stopped at time of CV yesterday
Holding Eliquis
Impression / Plan
-
.
PCP: Dr. Riley Patrick
Cardiology: Dr. Spencer, last seen 06/30/20
Impression:
Newly diagnosed typical atrial flutter with RVR 08/20/23
s/p successful JAROD/CV 08/22/23
Sinus bradycardia and sinus pauses up to 5.23 seconds 08/22/23 evening
h/o syncope 08/19/23
Elevated Troponin
DM 2
HTN
Hyperlipidemia
Lexiscan mibi 06/15/20: Small area fixed defect apex, EF 58%
Echo 08/21/23: EF 70-75%. Mild concentric LVH. Mild mitral regurgitation. No prior studies for comparison
Plan:
-Patient had successful JAROD/CV 08/22/23 and then had sinus bradycardia and pauses requiring brief dopamine and ephedrine by [employer]. Patient then transitioned to IVU and had a 5.23 second pause at 2200 on 08/22/23 and he was asymptomatic and sitting up
in bed during this episode. He had additional 2-3 second pauses overnight. He is now NSR. Last dose of Lopressor 50 mg BID was 08/22/23 AM and Cardizem gtt was stopped at time of CV.
-Talked with patient and partner about the risk of recurrent atrial flutter and that he cannot take AV jimmy blocking meds at present. Also discussed 5 second pause and risk of conduction system disease. Talked about PPM procedure, limitations and
risks vs benefits. Answered all questions of patient and partner. They are going to discuss further.
-Last dose of Eliquis was 08/23/23 AM. Will hold for possible PPM.
-Troponin T at [facility] was 18 and Troponin I at was 0.123 and trended down thereafter. ECG without ischemic changes. No complaints of chest pain. No recent chest pain or MONZON prior to admission. No ischemic by stress test in 2020. Will recommend an
outpatient stress test.
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 No reported pauses of [facility].
HPI: Patient came to [facility] yesterday with new atrial flutter and cardiology is consulted. 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 He is also a DM and has not had a working glucometer for 2 months so
after the morning practice session, but before the [facility] service he was lightheaded and ate some crackers and cookies and felt better. 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
with unconsciousness. Patient was cared for by EMS and a nurse in the [place] and then 911 came. Patient was taken to [facility]. He has the [facility] records and his recorded HR is 101, but no ECG. He had a CT chest that was negative for PE. CT head negative.
His Troponin T at [facility] was 18. He says he was told he should follow up with his PCP and so he saw Dr. Patrick in the office yesterday and HR was 130 and ECG was concerning for 'tachycardia' so patient was told to drive himself to [facility]. Upon arrival to
[facility] patient was given Lopressor and then Cardizem and once HR slowed flutter waves were seen. Patient was admitted overnight and started on Cardizem gtt and Heparin gtt. No chest pain, but Troponin was elevated again with initial level 0.123 and
trended down thereafter. Patient was able to move 16 bags of mulch within the last week without chest pain.
Attending addendum: Patient seen and examined. PA note reviewed and findings independently confirmed by me. Briefly, this is a 77-year-old gentleman with a longstanding history of diabetes mellitus x 30 years. He is active in the [employer] and reported an episode of profound dizziness and transient loss of consciousness while at [employer] on Sunday. He slumped forward but his states he was found to be immediately alert when he hit the ground. He had been somewhat diaphoretic
before falling. He was seen by several attendees of the service and given a little snack and some orange juice. He was then transferred to [facility] and had a CT scan of the chest that was negative for pulmonary embolism. He was told to
follow-up with his primary care physician and was seen by Dr. Patrick and had a heart rate of 130 bpm and referred to the emergency room for further evaluation. Upon arrival here he was found to be in atrial flutter/atrial fib. He was started on IV
Cardizem and IV heparin with improvement in the ventricular response. He has experienced no chest discomfort but his initial troponin measured 0.123 ng/ml. Patient states that he is not too active at home but moved 16 bags of mulch last week with
no difficulty. He denies any chest discomfort or shortness of breath. He is reasonably asymptomatic with his atrial flutter.
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
Subjective
Date of Service: August 23, 2023
He overall feels better after CV
Objective
Labs:
08/23/23 04:32
08/23/23 04:32
Labs
Hgb 9.3 g/dL (13.0-18.0) L 08/23/23 04:32
Hct 29.4 % (39.0-52.0) L 08/23/23 04:32
Plt Count 252 10^3/uL (130-400) 08/23/23 04:32
APTT Cancelled 08/22/23 17:00
Sodium 137 mmol/L (135-145) 08/23/23 04:32
Potassium 4.7 mmol/L (3.5-5.1) 08/23/23 04:32
BUN 25 mg/dl (9-20) H 08/23/23 04:32
Creatinine 1.6 mg/dL (0.7-1.3) H 08/23/23 04:32
Glucose 147 mg/dl (70-99) H 08/23/23 04:32
Troponins
08/20/23 08/20/23 08/21/23
19:33 23:55 00:46
Troponin I 0.123 H* 0.107 H* Cancelled
08/21/23 08/21/23 08/21/23
05:56 06:46 12:00
Troponin I 0.072 H* D Cancelled Cancelled
08/21/23 08/21/23
12:46 18:00
Troponin I Cancelled Cancelled
Vital Signs and I&O:
Vital Signs
Temp Pulse Resp BP Pulse Ox
98.3 F 65 18 115/64 97
08/23/23 07:00 08/23/23 04:21 08/23/23 07:00 08/23/23 04:21 08/23/23 07:00
Vital Signs
Temp Pulse Resp BP Pulse Ox
98.3 F 65 18 115/64 97
08/23/23 07:00 08/23/23 04:21 08/23/23 07:00 08/23/23 04:21 08/23/23 07:00
Intake & Output
08/21/23 08/22/23 08/23/23 08/24/23
06:59 06:59 06:59 06:59
Intake Total 120 / 120 240 / 240
Balance 120 / 120 240 / 240
Physical Exam
Physical Exam
GEN: NAD, AAOx3
HEENT: EOMI
LUNGS: No audible wheeze
CV: Reg
ABD: ND
EXT: No edema B/L
NEURO: Gross non-focal
SKIN: No rash
[2023-08-23 12:04] LABS: Glucose - Point of Care 197 mg/dl (70-99)
[2023-08-23 17:01] LABS: Glucose - Point of Care 182 mg/dl (70-99)
--- NOTE | 2023-08-23 18:30 | PTCARENOTE ---
pt with no pauses today. OOB to the bathroom and to the chair for meals. Denies any lightheadedness or dizziness. Pt scheduled for pacemaker tomorrow.
[2023-08-23 21:52] LABS: Glucose - Point of Care 207 mg/dl (70-99)
[2023-08-23] MEDS: LIPITOR 40 MG PO (22:25)
[2023-08-24] VITALS (11 sets, daily range): BP systolic 129–167; BP diastolic 60–77; BMI 28.0
--- NOTE | 2023-08-24 01:33 | PTCARENOTE ---
Patient ambulating self in room w/out difficulty. Denies any dizziness. Patients partner Miriam at bedside. Tele remains SR w/ BBBC, HR in the 60-80's. Denies any pain. Patient aware to maintain NPO status at midnight for PPM on 08/23. Call [facility] in
reach.
[2023-08-24 04:59] LABS: Hematocrit 28.1 % (39.0-52.0); Hemoglobin 9.3 g/dL (13.0-18.0); Mean Corp Hgb Conc. 33.1 g/dL (33.0-37.0); Mean Corpuscular Hgb 31.6 pg (27.0-31.0); Mean Corpuscular Volume 95.6 fL (80.0-94.0); Mean Platelet Volume 9.4 fL (7.4-10.4); Platelet Count 231 10^3/uL (130-400); Red Blood Cell Count 2.94 10^6/uL (4.70-6.10); Red Cell Dist. Width 15.3 % (11.5-14.5); White Blood Cell Count 9.2 10^3/uL (4.8-10.8)
[2023-08-24 05:29] LABS: Blood Urea Nitrogen 23 mg/dl (9-20); Calcium 8.2 mg/dl (8.4-10.2); Carbon Dioxide 23 mmol/L (22-30); Chloride 110 mmol/L (98-107); Estimated Creatinine Clearance 56 ml/min; Glucose 143 mg/dl (70-99); Potassium 4.4 mmol/L (3.5-5.1); Sodium 137 mmol/L (135-145); eGFR 56.93
--- NOTE | 2023-08-24 05:34 | PTCARENOTE ---
HEMALG wipes performed this AM. New IV site placed in left forearm 20G w/out difficulty. Morning blood work collected and sent to lab. Pt remains NPO. Call beckford in reach.
[2023-08-24 06:13] LABS: Glucose - Point of Care 202 mg/dl (70-99)
[2023-08-24] MEDS: NOVOLOG FLEXPEN-LOW RESISTANCE 2 UNITS SC (06:14)
--- NOTE | 2023-08-24 07:27 | W.PN.HOSP.TC ---
Today's Communication/Plan
-
Plan for pacemaker today.
Assessment / Plan
Assessment / Plan
Physical exam:
General: Well Developed, Well Nourished and No Apparent Distress
HEENT: Normocephalic, Atraumatic and Moist Mucous Membranes
Respiratory: Clear to Auscultation; Negative Wheezes, Rales or Rhonchi
Cardiac: Regular Rhythm and S1/S2
GI: Soft, Nontender and Nondistended
Musculoskeletal: No Clubbing, No Cyanosis and No Edema
Neuro: Awake, Alert and Oriented
Psych: Calm
Assessment:
Syncopal episode secondary to atrial flutter
New onset atrial flutter with RVR
Sinus bradycardia and significant heart block with junctional rhythm with significant cardiac pauses up to 5.3 seconds after cardioversion 08/21. In essence, sick sinus syndrome.
non-SD Troponin elevation likely due to tachycardia/Flutter
-He was transferred to IVU and he was given atropine and briefly started on dopamine drip and heart rate improved
-No rate control agents today (last dose beta-jack yesterday morning and Cardizem drip discontinued yesterday as well)
-Hold Eliquis for now in case he needs procedure such as pacemaker
-Continue cardiac monitoring
-Discussed with at bedside today on 08/23
-Plan for permanent pacemaker placement today
Prior to today:
- trop peaked at .107 - eventual ischemic evaluation stress vs cath per Cardiology
- TSH abnormal at 8; free T4 normal
- initially trialed on PO Cardizem, but went into further RVR
- started on IV Cardizem drip - requires intensive monitoring
- continue PO Metoprolol
- transition to Eliquis 5mg BID, cost is $47 per CM.
- TTE: normal LV size/function, normal EF. mild MR, trace TR otherwise normal
- for JAROD/CV today
- [facility] Cards following
Recent lower extremity edema
- Hold Lasix
Essential hypertension
- continue lisinopril
Type 2 diabetes
- Hold oral diabetic medications
- Insulin sliding scale
- A1c 7.5%
Hypercholesterolemia
- continue high intensity statin
- LDL: 36
Gout
- continue allopurinol
Chronic anemia
- Hemoglobin stable
- continue B12
DVT ppx: Eliquis
Code: Full
Anticipated Discharge: 24 - 48 hours
Subjective/Interval History
-
Date of Service: August 24, 2023
Patient denies any chest pain or shortness of breath or lightheadedness today.
Objective Data
-
Labs:
Laboratory Results
08/24/23
04:48
WBC 9.2
Hgb 9.3 L
Hct 28.1 L
Plt Count 231
Sodium 137
Potassium 4.4
Chloride 110 H
Carbon Dioxide 23
BUN 23 H
Creatinine 1.3
Glucose 143 H
Calcium 8.2 L
Vital Signs:
Vital Signs
Temp Pulse Resp BP Pulse Ox
98.2 F 65 18 129/66 97
08/24/23 06:59 08/24/23 06:59 08/24/23 06:59 08/24/23 02:09 08/24/23 06:59
I&O
08/23/23 08/24/23 08/25/23
06:59 06:59 06:59
Intake Total 240 / 240 240 / 240
Balance 240 / 240 240 / 240
[2023-08-24] MEDS: ZESTRIL 20 MG PO ×2 (09:49→20:00)
[2023-08-24] MEDS: ZYLOPRIM 100 MG PO ×2 (09:49→20:00)
[2023-08-24] MEDS: VITAMIN B-12 1000 MCG PO (09:49)
--- NOTE | 2023-08-24 11:48 | W.PN.CARDCBS ---
Today's Communication / Plan
-
N.p.o. pending pacemaker
Discussed at length with patient and his regarding risks, benefits
Impression / Plan
-
.
PCP: Dr. Riley Patrick
Cardiology: Dr. Spencer, last seen 06/30/20
Impression:
Newly diagnosed typical atrial flutter with RVR 08/20/23
s/p successful JAROD/CV 08/22/23
Sinus bradycardia and sinus pauses up to 5.23 seconds 08/22/23 evening
Sick sinus syndrome, symptomatic
h/o syncope 08/19/23
Elevated Troponin
DM 2
HTN
Hyperlipidemia
Lexiscan mibi 06/15/20: Small area fixed defect apex, EF 58%
Echo 08/21/23: EF 70-75%. Mild concentric LVH. Mild mitral regurgitation. No prior studies for comparison
Plan:
-Patient had successful JAROD/CV 08/22/23 and then had sinus bradycardia and pauses requiring brief dopamine and ephedrine by [employer]. Patient then transitioned to IVU and had a 5.23 second pause at 2200 on 08/22/23 and he was asymptomatic and sitting up
in bed during this episode. He had additional 2-3 second pauses overnight. He is now NSR. Last dose of Lopressor 50 mg BID was 08/22/23 AM and Cardizem gtt was stopped at time of CV.
-Talked with patient and partner about the risk of recurrent atrial flutter and that he cannot take AV jimmy blocking meds at present. Also discussed 5 second pause and risk of conduction system disease. Talked about PPM procedure, limitations and
risks vs benefits. Answered all questions of patient and partner. They are going to discuss further.
-With regard to patient's bradycardia and need for pacemaker, we discussed (with patient and ) pacemaker indications and device implant in detail. For implant there is an approximate 1:1000 risk of [place]/stroke/ and a 1% risk of
pneumothorax/tamponade/infection/bleeding. We discussed possibility of lead dislodgment requiring reimplantation less than 1%. We also discussed post procedure implant restrictions including positions to avoid with implant arm for first six weeks
after implant as well as driving restrictions. I took time to answer all questions. Patient remain n.p.o. for implantation of dual-chamber pacemaker due to symptomatic sick sinus syndrome, symptomatic bradycardia, sinus pauses requiring dopamine
and ephedrine following cardioversion; 5.23-second pause
-Last dose of Eliquis was 08/23/23 AM. Will hold for possible PPM.
-Troponin T at [facility] was 18 and Troponin I at was 0.123 and trended down thereafter. ECG without ischemic changes. No complaints of chest pain. No recent chest pain or MONZON prior to admission. No ischemic by stress test in 2020. Will recommend an
outpatient stress test.
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 No reported pauses of [facility].
HPI: Patient came to [facility] yesterday with new atrial flutter and cardiology is consulted. 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 He is also a DM and has not had a working glucometer for 2 months so
after the morning practice session, but before the [facility] service he was lightheaded and ate some crackers and cookies and felt better. Patient then stood during the [facility] service to direct the band and looked pale and sweaty and slumped forward
with unconsciousness. Patient was cared for by EMS and a nurse in the [place] and then 911 came. Patient was taken to [facility]. He has the [facility] records and his recorded HR is 101, but no ECG. He had a CT chest that was negative for PE. CT head negative.
His Troponin T at [facility] was 18. He says he was told he should follow up with his PCP and so he saw Dr. Patrick in the office yesterday and HR was 130 and ECG was concerning for 'tachycardia' so patient was told to drive himself to [facility]. Upon arrival to
[facility] patient was given Lopressor and then Cardizem and once HR slowed flutter waves were seen. Patient was admitted overnight and started on Cardizem gtt and Heparin gtt. No chest pain, but Troponin was elevated again with initial level 0.123 and
trended down thereafter. Patient was able to move 16 bags of mulch within the last week without chest pain.
Attending addendum: Patient seen and examined. PA note reviewed and findings independently confirmed by me. Briefly, this is a 77-year-old gentleman with a longstanding history of diabetes mellitus x 30 years. He is active in the [employer]
cho[employer] and reported an episode of profound dizziness and transient loss of consciousness while at [facility] on Sunday. He slumped forward but his states he was found to be immediately alert when he hit the ground. He had been somewhat diaphoretic
before falling. He was seen by several attendees of the service and given a little snack and some orange juice. He was then transferred to [facility] and had a CT scan of the chest that was negative for pulmonary embolism. He was told to
follow-up with his primary care physician and was seen by Dr. Patrick and had a heart rate of 130 bpm and referred to the emergency room for further evaluation. Upon arrival here he was found to be in atrial flutter/atrial fib. He was started on IV
Cardizem and IV heparin with improvement in the ventricular response. He has experienced no chest discomfort but his initial troponin measured 0.123 ng/ml. Patient states that he is not too active at home but moved 16 bags of mulch last week with
no difficulty. He denies any chest discomfort or shortness of breath. He is reasonably asymptomatic with his atrial flutter.
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
Subjective
Date of Service: August 24, 2023
Patient seen and examined this morning. No acute events overnight. Patient sinus rhythm on telemetry. Rare blocked PACs with no significant pauses. No reported lightheadedness, dizziness, near-syncope, syncope, PND, orthopnea, edema, or weakness.
Objective
Labs:
08/24/23 04:48
08/24/23 04:48
Labs
Hgb 9.3 g/dL (13.0-18.0) L 08/24/23 04:48
Hct 28.1 % (39.0-52.0) L 08/24/23 04:48
Plt Count 231 10^3/uL (130-400) 08/24/23 04:48
APTT Cancelled 08/22/23 17:00
Sodium 137 mmol/L (135-145) 08/24/23 04:48
Potassium 4.4 mmol/L (3.5-5.1) 08/24/23 04:48
BUN 23 mg/dl (9-20) H 08/24/23 04:48
Creatinine 1.3 mg/dL (0.7-1.3) 08/24/23 04:48
Glucose 143 mg/dl (70-99) H 08/24/23 04:48
Vital Signs and I&O:
Vital Signs
Temp Pulse Resp BP Pulse Ox
98.3 F 64 18 153/69 99
08/24/23 11:24 08/24/23 11:24 08/24/23 11:24 08/24/23 09:49 08/24/23 11:24
Vital Signs
Temp Pulse Resp BP Pulse Ox
98.3 F 64 18 153/69 99
08/24/23 11:24 08/24/23 11:24 08/24/23 11:24 08/24/23 09:49 08/24/23 11:24
Intake & Output
08/22/23 08/23/23 08/24/23 08/25/23
06:59 06:59 06:59 06:59
Intake Total 120 / 120 240 / 240 240 / 240
Balance 120 / 120 240 / 240 240 / 240
Physical Exam
Physical Exam
GEN: NAD, AAOx3
HEENT: EOMI
LUNGS: No audible wheeze
CV: Reg
ABD: ND
EXT: No edema B/L
NEURO: Gross non-focal
SKIN: No rash
[2023-08-24 12:03] LABS: Glucose - Point of Care 176 mg/dl (70-99)
[2023-08-24] MEDS: VANCOCIN 300 ML IV (12:20)
[2023-08-24] MEDS: VANCOCIN 300 MG IV (12:20)
--- NOTE | 2023-08-24 12:45 | ITS.CL.PACE ---
International Project Manager - Pacemaker Implant
Pacemaker Implant
Procedure Report:
Primary Care Doctor: Riley Patrick MD
Primary Director Radio: Torsten Spencer MD
Procedure Date: 08/24/2023
Name of procedure:
1. Placement of a dual-chamber pacemaker
2. Subclavian venography
History:
1. Patient is a pleasant 77-year-old male with past medical history significant for hypertension, hyperlipidemia, diabetes mellitus type 2, newly diagnosed typical atrial flutter with rapid ventricular rate who underwent JAROD cardioversion on
noted to have symptomatic sick sinus syndrome requiring dopamine and ephedrine for heart rate and blood pressure improvement, sinus bradycardia, sinus pauses up to 5.23 seconds, recent syncope/ with likely tachybradycardia syndrome
2. Please refer to H&P for complete history.
Indication:
Symptomatic sick sinus syndrome
Tachybradycardia syndrome
Sinus pauses up to 5.23 seconds
Recent syncope of unclear etiology
Need for AV jimmy blocking agents
Methods:
After informed consent was obtained, the patient was brought to the EP laboratory in a postabsorptive, nonsedated state. Peripheral IV access was established. Prophylactic antibiotics were administered prior to incision. Continuous ECG, blood
pressure, and pulse oximetry were initiated. Cardioversion patch electrodes were placed on the patient's chest and back. A grounding patch was applied to the skin. Sedation was administered by anesthesia.
In order to define the extrathoracic portion of the subclavian vein and exclude significant venous obstruction or anomalous anatomy, subclavian venography was performed prior to the procedure. Using the patient's left peripheral IV, contrast was
injected and images were recorded. The left subclavian vein and SVC were found to be widely patent.
The left chest was prepared and draped in a sterile fashion. A time-out was performed. Local anesthesia was injected in the subcutaneous tissue in the infraclavicular area. An incision was made medial to the deltopectoral groove. The subcutaneous
tissue was dissected the level of the prepectoral fascia. A subcutaneous pocket was created. Under fluoroscopic guidance and with the assistance of the images from the venogram, 2 separate venipunctures were made using micropuncture and modified
Seldinger technique. These were performed in the extrathoracic portion of the subclavian vein. Guidewires were passed and two peel-away sheaths were placed, and used to advance leads into the circulation.
Using fluoroscopic guidance, the leads were positioned. The RV lead was advanced to the RV/outflow tract. Ventricular ectopy was recorded. Images were taken in [place] and [place] views to ensure appropriate lead placement. The lead tip was subsequently
positioned on the apical septum. Adequate sensing and pacing parameters were found, and no diaphragmatic stimulation was seen with high-output pacing.
Next, the right atrial lead was positioned in the right atrial appendage. Adequate sensing and pacing parameters were found, and no diaphragmatic stimulation was seen with high-output pacing. Both sheaths were split, and the leads were secured to
the fascia with Ethibond ties.
The pocket was flushed with antibiotic solution and hemostasis was assured. Antibiotic envelope was used. Surgiflo was applied. The generator was connected to the leads and placed inside the pocket. The wound was closed with 3 running layers of
absorbable suture, and steri-strips were applied. Dressing applied over steri-strips in standard fashion.
Following the procedure, the patient was taken to the recovery area in stable condition. A chest x-ray was obtained in the holding area.
Lead parameters and device programming:
- RA Lead (Medtronic , Model 5076, #[id number]): Sensing 2.1 mV, Pacing threshold 1.0 V at 0.4 ms, Imp 570 Ohm
- RV Lead (Medtronic, Model 5076, #[id number]): Sensing 7.3 mV, Pacing threshold 0.325 V at 0.4 ms, Imp 627 Ohm
- Device: Medtronic, Model W1DR01 DC pacemaker (#[id number]), programmed AAIR<-> DDDR, mode switch on, LRL 60 UTR 130 ppm
Conclusions:
1. Successful placement of a dual-chamber pacemaker
2. Subclavian venography
Recommendations:
1. Return to patient room
2. CXR
3. IV antibiotics while the patient is admitted.
4. OK to resume home medications as indicated; if site and patient stable on 08/24 AM, can resume AM Eliquis
5. Pressure dressing to be removed in AM, aquacell to remain until wound check
6. Follow-up will be arranged in the office in 7-10 days post-discharge
7. Can resume BB as indicated
Maxx Ewing,
Clinical Cardiac Car Runner
cc: Riley Patrick MD; Torsten Spencer MD
--- NOTE | 2023-08-24 16:15 | CM ---
Reviewed chart. Met with and Mrs. Groves to review discharge plans. He states he is feeling okay and maybe able to go home soon. Prior to admission he resides with his spouse in a two story home with one step to enter. He only has to go
upstairs to go to his man cave. Prior to admission he was independent with ambulation and adls. He He has a does not have any DME in the home. He has a prescription plan and uses [facility]. Medical work-up in progress. The discharge plan is to
return home with his spouse when medically stable.
[2023-08-24 17:11] LABS: Glucose - Point of Care 125 mg/dl (70-99)
[2023-08-24] MEDS: AZACTAM 2000 MG IV (17:25)
[2023-08-24] MEDS: NOVOLOG FLEXPEN-LOW RESISTANCE SC ×2 (17:25→17:26)
--- NOTE | 2023-08-24 17:28 | PTCARENOTE ---
Received pt post PPM. VSS. Pt's left ACW pressure dressing intact. Pt denies any discomfort. Will monitor.
[2023-08-24] MEDS: LIPITOR 40 MG PO (22:08)
[2023-08-24 22:11] LABS: Glucose - Point of Care 174 mg/dl (70-99)
--- NOTE | 2023-08-25 04:25 | PTCARENOTE ---
Pt resting with spouse at bedside. left ant chest pacer site with pressure drsg intact. no active bleeding or swelling noted. Pt denies pain at site,immobilizer in use. HOB at 30 degrees. Sinus on telemetry.
[2023-08-25 04:58] VITALS: BP 130/73
[2023-08-25 05:52] LABS: Hematocrit 28.5 % (39.0-52.0); Hemoglobin 9.3 g/dL (13.0-18.0); Mean Corp Hgb Conc. 32.6 g/dL (33.0-37.0); Mean Corpuscular Hgb 30.8 pg (27.0-31.0); Mean Corpuscular Volume 94.4 fL (80.0-94.0); Mean Platelet Volume 9.8 fL (7.4-10.4); Platelet Count 244 10^3/uL (130-400); Red Blood Cell Count 3.02 10^6/uL (4.70-6.10); Red Cell Dist. Width 15.6 % (11.5-14.5); White Blood Cell Count 9.7 10^3/uL (4.8-10.8)
[2023-08-25 06:01] LABS: Blood Urea Nitrogen 18 mg/dl (9-20); Calcium 8.2 mg/dl (8.4-10.2); Carbon Dioxide 25 mmol/L (22-30); Chloride 110 mmol/L (98-107); Estimated Creatinine Clearance 66 ml/min; Glucose 125 mg/dl (70-99); Magnesium 2.3 mg/dl (1.6-2.3); Potassium 4.5 mmol/L (3.5-5.1); Sodium 137 mmol/L (135-145); eGFR > 60.00
--- NOTE | 2023-08-25 06:35 | PTCARENOTE ---
Medtronic care link completed, results on front of chart
[2023-08-25 07:33] VITALS: BP 125/80
[2023-08-25 07:40] LABS: Glucose - Point of Care 152 mg/dl (70-99)
[2023-08-25] MEDS: NOVOLOG FLEXPEN-LOW RESISTANCE 1 UNITS SC (08:12)
[2023-08-25] MEDS: VITAMIN B-12 1000 MCG PO (08:13)
[2023-08-25] MEDS: ZYLOPRIM 100 MG PO (08:13)
[2023-08-25] MEDS: ZESTRIL 20 MG PO (08:13)
--- NOTE | 2023-08-25 10:07 | W.PN.HOSP.TC ---
Today's Communication/Plan
-
d/c
Assessment / Plan
Assessment / Plan
Gen: NAD, AAOx3.
Eyes: EOMI, PERRLA, no scleral icterus.
Neck: supple.
CV: RRR, +S1/S2, no m/r/g.
Resp: CTAB, no rales, wheezes, or rhonchi.
Abd: +BS, soft, NT, ND
Skin: No rashes.
Neuro: CN 2-12 intact, non-focal.
Psych: Normal mood and affect.
Echo: normal LV size/function, normal EF. mild MR, trace TR otherwise normal
CXR: Left-sided dual-lead cardiac pacemaker remains in place. No pneumothorax. No evidence of pneumonia or congestive heart failure. The cardiomediastinal margins are stable. Stable minor linear opacity at the left lung base. Atelectasis versus
scarring.
Syncopal episode secondary to atrial flutter with RVR (new onset):
-Was on Cardizem drip. Had JAROD cardioversion on 08/22/23 and developed sinus bradycardia and significant heart block with junctional rhythm with significant cardiac pauses up to 5.3 seconds. In essence, sick sinus syndrome. He was transferred to
IVU and he was given atropine and briefly started on dopamine drip and heart rate improved.
-s/p dual chamber PPM on 08/24/23
-cont Eliquis
-BB will be lower dose on d/c
-cardiology following
-acute nonischemic myocardial injury due to tachycardia/Flutter (trop peaked at 0.123)
-echo above
Other problems:
Recent lower extremity edema: Lasix on hold
Essential hypertension: continue lisinopril
DM2: a1c 7.5%, SSI/accuchecks
Hypercholesterolemia: cont statin
Gout: continue allopurinol
Chronic anemia: Hb stable
FULL/Eliquis
Case discussed with Dr. Gleason, medically stable for d/c.
Total time spent on d/c = 31 min. This included today's physical exam, progress note, review of laboratory and diagnostic data, preparation of discharge documents and prescriptions, and discussions about the pt's hospital course and discharge plan
with the patient and other medical leader involved in the patient's care.
Anticipated Discharge: Today
Subjective/Interval History
-
Date of Service: August 25, 2023
Denies chest pain or shortness of breath.
Objective Data
-
Labs:
Laboratory Results
08/25/23
05:08
WBC 9.7
Hgb 9.3 L
Hct 28.5 L
Plt Count 244
Sodium 137
Potassium 4.5
Chloride 110 H
Carbon Dioxide 25
BUN 18
Creatinine 1.1
Glucose 125 H
Calcium 8.2 L
Vital Signs:
Vital Signs
Temp Pulse Resp BP Pulse Ox
98.7 F 69 18 125/80 98
08/25/23 07:00 08/25/23 08:00 08/25/23 07:00 08/25/23 07:33 08/25/23 08:36
I&O
08/24/23 08/25/23 08/26/23
06:59 06:59 06:59
Intake Total 240 / 240 820 / 820
Balance 240 / 240 820 / 820
[2023-08-25 10:56] VITALS: BP 146/60
[2023-08-25] MEDS: LOPRESSOR 25 MG PO (10:58)
[2023-08-25] MEDS: NOVOLOG FLEXPEN-LOW RESISTANCE 2 UNITS SC (11:05)
[2023-08-25] MEDS: ELIQUIS 5 MG PO (11:05)
[2023-08-25 11:06] LABS: Glucose - Point of Care 224 mg/dl (70-99)
[2023-08-25] MEDS: PREVNAR 20 0.5 ML IM (12:11)
--- NOTE | 2023-08-25 14:05 | PTCARENOTE ---
Pt had CXR. Pt seen by Tori and Mandy. Telemetry and 3 IV devices removed. Discharge instructions reviewed with pt and his regarding activity and driving restrictions, wound care, pain management, medications and their possible side
effects, reporting cares and concerns and follow up appt's. Very good understanding taught back to this RN. Pt escorted out via wheelchair and discharged to home. Pt advised to wear his immobilizer at bedtime for a few weeks.
--- NOTE | 2023-08-25 15:52 | W.DCSUMMARY ---
Discharge Summary
Discharge Data
Date of Admission: 08/20/23
Date of Discharge: 08/25/23
-
Pending Results: No
Hospital Course
Primary diagnoses:
Syncopal episode secondary to atrial flutter with rapid ventricular response (new onset)
Sinus bradycardia with sinus pauses up to 5.23 seconds
Symptomatic sick sinus syndrome
Nonischemic myocardial injury
Secondary diagnoses:
Recent lower extremity edema
Essential hypertension
Type 2 diabetes mellitus
Hypercholesterolemia
Gout
Chronic anemia
Consultants:
Cardiology
Imaging:
Echo: normal LV size/function, normal EF. mild MR, trace TR otherwise normal
CXR: Left-sided dual-lead cardiac pacemaker remains in place. No pneumothorax. No evidence of pneumonia or congestive heart failure. The cardiomediastinal margins are stable. Stable minor linear opacity at the left lung base. Atelectasis versus
scarring.
Hospital course: 77-year-old male who initially presented with chief complaint of syncope as outlined in the H&P dictated time of admission. Patient was in atrial flutter with RVR. Patient was initially on a Cardizem drip. He had a JAROD/CV on
08/22/23 and developed sinus bradycardia and significant heart block with junctional rhythm with significant cardiac pauses up to 5.3 seconds. In essence, sick sinus syndrome. He was transferred to IVU and he was given atropine and briefly started
on dopamine drip and heart rate improved. He underwent dual-chamber pacemaker placement on August 24, 2023. He tolerated the procedure well. He was discharged in medically stable condition.
Discharge Plan
-
Patient Disposition: Home (Routine Discharge)
Discharge Diagnosis/Procedures: Atrial flutter with rapid ventricular response s/p JAROD/CV 08/21, Pacemaker implant 08/23
Condition: Good
Diet: Low Cholesterol and Diabetic, Carb Controlled
Activity: Other activity
Driving Restrictions: No driving for 1 week
Bathing Restrictions: OK to Shower
Stand Alone Forms: DC Inst - Implanted Device
Referrals:
[facility]- [facility] [Provider Group] - 09/03/23 10:20 am (Incision check appointment)
Colten José DO [Active] - 09/13/23 10:00 am (You have an appt to see Dr. José's nurse practitioner, Gila, at the [place] office on 09/13/23 at 10 AM. Please call [phone] if you need to reschedule.)
Riley Patrick MD [Family Provider] - in less than 1 week
Additional Discharge Medication Instructions: Hold Metformin post procedure, resume on Sunday.
Prescriptions:
New
Eliquis 5 mg tablet
5 mg PO BID Qty: 60 6RF
metoprolol tartrate 25 mg Tablet
25 mg PO BID Qty: 60 0RF
metoprolol tartrate [Lopressor] 50 mg tablet
25 mg PO BID Qty: 30 0RF
Continued
lisinopril 20 MG tablet
20 mg PO BID
cyanocobalamin (vitamin B-12) 1,000 MCG tablet
1,000 mg PO DAILY
glimepiride 2 MG tablet
2 mg PO DAILY
metformin 500 MG tablet extended release 24 hr
500 mg PO QPM
acarbose 25 mg Tablet
25 mg PO BID
furosemide 40 mg tablet
40 mg PO DAILY
allopurinol 100 mg tablet
100 mg PO BID
aspirin 81 mg Tablet,Delayed Release (Dr/Ec)
81 mg PO DAILY
Discontinued
simvastatin 20 MG tablet
20 mg PO HS
metoprolol tartrate 50 MG tablet
50 mg PO BID
No Action
simvastatin 20 mg Tablet
20 mg PO QPM
Discharge Orders:
Discharge Patient (As Directed); Ordered 08/25/23
Ordered By: Emigdio Galvan
Care Plan Goals
Care Plan Goals:
Problem: Readiness for enhanced knowledge related to diagnosis and treatment plan
Goal: Understand your diagnosis and treatment plan needs, including medications if applicable.
Instructions: Know your diagnosis, underlying causes and treatment plan options, including medications if applicable. Consult with your health care team to learn about your diagnosis and treatment plan, including medications if applicable.
Discharge Date and Time
Discharge Date/Time: 08/25/23 13:50
Print Language: TURKISH
--- NOTE | 2023-08-25 18:15 | W.PN.CARDCBS ---
Today's Communication / Plan
-
Post procedure supportive care and activity restrictions reviewed
Outpatient wound care check in 1 week arranged
Start Eliquis 5 mg twice daily
Resume beta-jack
Monitor blood pressure trends as an outpatient
Outpatient stress test recommended
Stable from a cardiovascular standpoint for discharge home
Impression / Plan
-
PCP: Dr. Riley Patrick
Cardiology: Dr. Spencer, last seen 06/30/20
Impression:
Newly diagnosed typical atrial flutter with RVR 08/20/23
s/p successful JAROD/CV 08/22/23
Sinus bradycardia and sinus pauses up to 5.23 seconds 08/22/23 evening
Sick sinus syndrome, symptomatic
h/o syncope 08/19/23
Elevated Troponin
DM 2
HTN
Hyperlipidemia
Lexiscan mibi 06/15/20: Small area fixed defect apex, EF 58%
Echo 08/21/23: EF 70-75%. Mild concentric LVH. Mild mitral regurgitation. No prior studies for comparison
Plan:
Syncopal episode with sick sinus syndrome
-Patient found to be in rapid atrial flutter, new onset started on a Cardizem drip and had a JAROD cardioversion 08/22/2023 to sinus bradycardia with pauses requiring brief dopamine and ephedrine by anesthesia.
-While on telemetry, patient had a 5.23 second pause at 2200 on 08/22/23 and he was asymptomatic and sitting up in bed during this episode.
-He underwent successful dual-chamber pacemaker implant 08/24/[address] Jenkins
-Will restart metoprolol tartrate at slightly lower dose for blood pressures, 25 mg twice daily
-Pacemaker site looks good and we reviewed activity restrictions and wound care
-Start Eliquis 5 mg twice daily today
-Outpatient pacemaker site check in our office this week
Abnormal cardiac troponin at outside hospital with cardiac risk factors
-Troponin T at [facility] was 18 and Troponin I at was 0.123 and trended down thereafter. ECG without ischemic changes. No complaints of chest pain. No recent chest pain or MONZON prior to admission.
-Continue aspirin 81 mg daily and atorvastatin
-Outpatient ischemic evaluation with stress test to be arranged
Dyslipidemia
-Lipid profile 08/22/2023: Total cholesterol 95, LDL 36, HDL 30, triglycerides 145
�continue outpatient simvastatin
Hypertension
�blood pressures relatively controlled
-Will continue metoprolol tartrate but at a lower dose 25 mg twice daily. Continue Lasix 40 mg once daily and lisinopril 20 mg twice daily
Normocytic anemia with hemoglobin 9 g/dL, previously 11 in April 2023
-Monitor closely on anticoagulation
-Consider further outpatient evaluation which can be deferred to his primary care physician
History of type 2 diabetes melitis, hemoglobin A1c 08/21/2023 7.5%
-importance of normoglycemia stressed
Progress Note - [employer]
Subjective
Date of Service: August 25, 2023
Seen and examined with at bedside. Anxious to go home and feeling well.
Objective
Labs:
08/25/23 05:08
08/25/23 05:08
Labs
Hgb 9.3 g/dL (13.0-18.0) L 08/25/23 05:08
Hct 28.5 % (39.0-52.0) L 08/25/23 05:08
Plt Count 244 10^3/uL (130-400) 08/25/23 05:08
APTT Cancelled 08/22/23 17:00
Sodium 137 mmol/L (135-145) 08/25/23 05:08
Potassium 4.5 mmol/L (3.5-5.1) 08/25/23 05:08
BUN 18 mg/dl (9-20) 08/25/23 05:08
Creatinine 1.1 mg/dL (0.7-1.3) 08/25/23 05:08
Glucose 125 mg/dl (70-99) H 08/25/23 05:08
Vital Signs and I&O:
Vital Signs
Temp Pulse Resp BP Pulse Ox
98.6 F 63 18 146/60 96
08/25/23 10:55 08/25/23 10:58 08/25/23 10:55 08/25/23 10:58 08/25/23 10:55
Vital Signs
Temp Pulse Resp BP Pulse Ox
98.6 F 63 18 146/60 96
08/25/23 10:55 08/25/23 10:58 08/25/23 10:55 08/25/23 10:58 08/25/23 10:55
Intake & Output
08/23/23 08/24/23 08/25/23 08/26/23
06:59 06:59 06:59 06:59
Intake Total 240 / 240 240 / 240 820 / 820 180 / 180
Balance 240 / 240 240 / 240 820 / 820 180 / 180
Physical Exam
Physical Exam
General: No acute distress, AAOX3
Neck: Negative JVD
Heart: Regular, positive S1/S2, No murmur
Lungs: CTA b/l, negative wheezes/rales/rhonchi
Abd: Positive BS, NT/ND, neg rebound/rigidity/guarding
Ext: No edema. Pacemaker site left anterior chest wall with dressing. No hematoma or drainage
Neuro: nonfocal
== END 2023-08-25 13:50 | disposition home or self-care (01) | DRG 243 ==
LOC: IVU 23:59
PROVIDERS: Hospitalist; Internal Medicine; Internal Medicine Cardiovascular Disease; Nuclear Medicine Nuclear Cardiology; Nurse Practitioner Adult Health; Physician Assistant; ADMITTING PHYSICIAN Hospitalist; ATTENDING PHYSICIAN Internal Medicine; EMERGENCY PHYSICIAN Student in an Organized Health Care Education/Training Program; FAMILY PHYSICIAN Internal Medicine; OTHER PHYSICIAN Internal Medicine Interventional Cardiology
PROC: 3E0234Z Introduction of Serum, Toxoid and Vaccine into Muscle, Percutaneous Approach (ICD-10-PCS; 2023-08-22)
PROC: B24BZZ4 Ultrasonography of Heart with Aorta, Transesophageal (ICD-10-PCS; 2023-08-22)
PROC: 5A2204Z Restoration of Cardiac Rhythm, Single (ICD-10-PCS; 2023-08-22)
PROC: 02H63JZ Insertion of Pacemaker Lead into Right Atrium, Percutaneous Approach (ICD-10-PCS; 2023-08-24)
PROC: 0JH606Z Insertion of Pacemaker, Dual Chamber into Chest Subcutaneous Tissue and Fascia, Open Approach (ICD-10-PCS; 2023-08-24)
PROC: 02HK3JZ Insertion of Pacemaker Lead into Right Ventricle, Percutaneous Approach (ICD-10-PCS; 2023-08-24)
PROC: 3E0102A Introduction of Anti-Infective Envelope into Subcutaneous Tissue, Open Approach (ICD-10-PCS; 2023-08-24)
PROC: B5171ZA Fluoroscopy of Left Subclavian Vein using Low Osmolar Contrast, Guidance (ICD-10-PCS; 2023-08-24)
DX: I49.5 Sick sinus syndrome (principal); I45.2 Bifascicular block; I48.3 Typical atrial flutter; I48.92 Unspecified atrial flutter; I5A Non-ischemic myocardial injury (non-traumatic); E11.9 Type 2 diabetes mellitus without complications; I11.9 Hypertensive heart disease without heart failure; E78.00 Pure hypercholesterolemia, unspecified; M10.9 Gout, unspecified; D64.9 Anemia, unspecified; I48.91 Unspecified atrial fibrillation; R60.0 Localized edema; R55 Syncope and collapse; Z88.0 Allergy status to penicillin; Z88.8 Allergy status to other drugs, medicaments and biological substances; Z79.82 Long term (current) use of aspirin; Z87.891 Personal history of nicotine dependence; Z79.84 Long term (current) use of oral hypoglycemic drugs; Z23 Encounter for immunization; Z79.01 Long term (current) use of anticoagulants
CPT/HCPCS: 33208; 71045; 71046; 80048; 80053; 80061; 81003; 82962; 83036; 83735; 84439; 84443; 84484; 85025; 85027; 85730; 90662; 90677; 92960; 93005; 93306; 93312; 93320; 93325; 96361; 96374; 96375; 97116; 97164; 99285; C1785; C1892; C1898; G0008; G0009; Q9967

== ENCOUNTER → 2023-10-15 08:24 | Outpatient (REF) | payer OTHER, SELFPAY | LOC: DHCBC/DCA 08:24 | PROVIDERS: ATTENDING PHYSICIAN Nurse Practitioner; FAMILY PHYSICIAN Internal Medicine | DX: I10 Essential (primary) hypertension (principal); I49.5 Sick sinus syndrome; I48.4 Atypical atrial flutter | CPT/HCPCS: 78452; 93017; A9500; J2785 ==